=== PATIENT | female | born 1950 | race Caucasian/White ===

== ENCOUNTER 2017-05-15 12:01 | Day surgery (SDC) | payer MEDICARE ==
[~2017-05-15] VITALS: Ht 152.4 cm; Wt 66.2 kg
[2017-05-15] MEDS ORDERED: METF850T2 PO (12:44)
[2017-05-15] MEDS ORDERED: AMIODARONE HCL PO (12:44)
[2017-05-15] MEDS ORDERED: AMLO5TAB4 PO (12:44)
[2017-05-15] MEDS ORDERED: ATOR10TA PO (12:44)
[2017-05-15] MEDS ORDERED: GLIP10TA10 PO (12:44)
[2017-05-15] MEDS ORDERED: HYDR25TA PO (12:44)
[2017-05-15] MEDS ORDERED: VALS160T2 PO (12:44)
[2017-05-15] MEDS ORDERED: CARV6.2548 PO (12:44)
[2017-05-15] MEDS ORDERED: OMEP40CA34 PO (12:44)
[2017-05-15] MEDS ORDERED: ASPI-1159 PO (12:44)
[2017-05-15] MEDS ORDERED: NICARDIPINE 100MCG/ML 10ML VIAL (CATH LAB) IV ONE (12:51)
[2017-05-15] MEDS ORDERED: NITROGLYCERIN 50MCG/ML 10ML VIAL (CATH LAB) IV ONE (12:51)
[2017-05-15] MEDS ORDERED: MIDAZOLAM HCL 2 MG/2 ML VIAL ONE (13:57)
[2017-05-15] MEDS ORDERED: IOHEXOL-300 100 ML BOTTLE ONE (13:57)
[2017-05-15] MEDS ORDERED: LIDOCAINE HCL 1% 20ML VIAL (Pyxis) INJ ONE (14:00)
[2017-05-15] MEDS ORDERED: FENTANYL CITRATE/PF 50MCG/ML 2ML VIAL ONE (14:00)
[2017-05-15] MEDS ORDERED: HEPARIN SODIUM 1,000 UNIT/1ML VIAL IV ONE ×2 (14:00→14:01)
== END 2017-05-15 17:10 | disposition home or self-care (01) ==
LOC: CCL 12:01
PROVIDERS: ATTEND Specialist
DX: I25.10 Atherosclerotic heart disease of native coronary artery without angina pectoris (principal); I11.9 Hypertensive heart disease without heart failure; I25.2 Old myocardial infarction; E78.5 Hyperlipidemia, unspecified; E11.9 Type 2 diabetes mellitus without complications; Z79.4 Long term (current) use of insulin; I27.2 Other secondary pulmonary hypertension; Z88.0 Allergy status to penicillin; Z95.810 Presence of automatic (implantable) cardiac defibrillator
CPT/HCPCS: 82962; 93458; 99152; C1769; C1887; C1893; J1644; J2250; J3010; J3490; Q9967